=== PATIENT | female | born 2000 | race Native Hawaiian/Other Pacific Islander ===

== ENCOUNTER 2021-01-27 17:07 | Emergency (ER) | payer OTHER ==
[~2021-01-27] VITALS: Ht 157.5 cm; Wt 83.9 kg
[2021-01-27 17:27] VITALS: TEMP 99
[2021-01-27 20:31] VITALS: BP 110/75
== END 2021-01-27 20:32 | disposition home or self-care (01) ==
LOC: ED 17:07
DX: T78.40XA Allergy, unspecified, initial encounter (principal); Z20.822 Contact with and (suspected) exposure to COVID-19
CPT/HCPCS: 87502; 87635; 87651; 96372; 99283; J0696; J1100; U0003

== ENCOUNTER 2021-04-02 01:31 | Emergency (ER) | payer OTHER ==
[~2021-04-02] VITALS: Ht 157.5 cm; Wt 83.9 kg
[2021-04-02 02:30] VITALS: BP 126/82; TEMP 98.9
== END 2021-04-02 02:30 | disposition home or self-care (01) ==
LOC: ED 01:31
DX: J06.9 Acute upper respiratory infection, unspecified (principal); U07.1 COVID-19; F17.290 Nicotine dependence, other tobacco product, uncomplicated
CPT/HCPCS: 87635; 99283; U0003

== ENCOUNTER 2021-07-07 22:36 | Emergency (ER) | payer OTHER ==
[~2021-07-07] VITALS: Ht 157.5 cm; Wt 78.0 kg
[2021-07-08 03:05] VITALS: BP 123/78; TEMP 98.4
== END 2021-07-08 04:03 | disposition home or self-care (01) ==
LOC: ED 22:36
DX: F31.89 Other bipolar disorder (principal)
CPT/HCPCS: 99282